=== PATIENT | female | born 1985 | race Caucasian/White ===

== ENCOUNTER 2016-11-10 03:50 | Emergency (ER) | payer OTHER ==
[~2016-11-10] VITALS: Ht 160 cm; Wt 72.6 kg
[2016-11-10] MEDS ORDERED: XARELTO20 MG (04:11)
[2016-11-10 05:11] LABS: HEMATOCRIT 35.9 % (37.0-47.0); HEMOGLOBIN 12.2 gm/dL (12.0-15.0); MCH 28.1 pg (26.0-34.0); MCV 82.7 fL (80.0-100.0); RBC 4.34 mil/uL (4.20-5.00); RDW 14.5 % (10.5-14.5); WBC 5.4 thou/uL (4.0-11.0)
[2016-11-10] MEDS ORDERED: XARELTO20 MG PO (05:14)
[2016-11-10] MEDS ORDERED: TRAMADOL 50 MG50 MG PO (05:14)
[2016-11-10 05:20] LABS: CALCIUM 8.6 mg/dL (8.5-10.1); CREATININE 0.7 mg/dL (0.6-1.0); POTASSIUM 3.6 mmol/L (3.5-5.1)
[2016-11-10 05:27] LABS: APTT 26.4 Seconds (24.5-32.8); PROTIME 10.1 Seconds (9.3-11.4)
[2016-11-10 05:34] VITALS: BP 98/60
== END 2016-11-10 08:23 | disposition home or self-care (01) ==
LOC: ER 03:50
PROVIDERS: Emergency Medicine
DX: M79.604 Pain in right leg (principal); Z86.718 Personal history of other venous thrombosis and embolism; Z86.711 Personal history of pulmonary embolism; Z98.890 Other specified postprocedural states; Z88.6 Allergy status to analgesic agent